=== PATIENT | female | born 1985 | race Caucasian/White ===

== ENCOUNTER 2018-10-10 18:45 | Emergency (ER) | payer OTHER ==
[~2018-10-10] VITALS: Ht 160 cm; Wt 56.7 kg
[~2018-10-10 18:45] MED LIST: BACTRIM DS TAB1 EACH PO; DERMOPLAST SPRA56 ML TOP; IBUPROFEN 800800 M1 PO; LANOLIN56 GM; MACROBID 100 M100 M1 PO; MUCINEX600 MG PO; NOHOMEMEDICATIONS; NORCO 5-325 TA1 EACH PO; PAIN RELIEVER500 M3 PO; TUCKS1 EAC1 TP; ZOLOFT 50 MG TA50 M1 PO
[2018-10-10 19:18] LABS: URINE BILIRUBIN NEGATIVE (Negative); URINE BLOOD NEGATIVE (Negative); URINE CLARITY CLEAR; URINE COLOR YELLOW; URINE GLUCOSE-RANDOM* NEGATIVE (Negative); URINE KETONES NEGATIVE (Negative); URINE PROTEIN (DIPSTICK) NEGATIVE (Negative); URINE SPECIFIC GRAVITY 1.015 (1.005-1.035)
[2018-10-10 19:19] LABS: URINE LEUKOCYTES-REFLEX 1+ (Negative); URINE NITRITE-REFLEX NEGATIVE (Negative); URINE UROBILINOGEN 0.2 E.U./dl (0.2-1.0)
[2018-10-10 19:26] LABS: CASTS None Seen /LPF (None Seen); SQUAMOUS 4-10 Moderate /LPF (0-3); URINE RBC None Seen /HPF (0-2); URINE WBC-REFLEX 6-15 Few /HPF (0-5)
[2018-10-10 19:27] LABS: CRYSTALS None Seen /LPF (None Seen)
[2018-10-10 20:23] LABS: ABSOLUTE NEUTROPHILS 5.5 thou/uL (1.4-8.2); BASOPHILS 0.6 % (0.0-2.0); EOSINOPHILS 1.5 % (0.0-3.0); HEMATOCRIT 45.4 % (37.0-47.0); HEMOGLOBIN 15.6 gm/dL (12.0-15.0); LYMPHOCYTES 31.7 % (24.0-44.0); MCH 32.2 pg (26.0-34.0); MCHC 34.2 g/dL (28.0-37.0); MCV 93.9 fL (80.0-100.0); MONOCYTES 5.3 % (1.0-8.0); PLATELET COUNT 307 thou/uL (150-400); POLYS 60.9 % (36.0-66.0); RBC 4.84 mil/uL (4.20-5.00)
[2018-10-10 20:31] LABS: CALCIUM 9.5 mg/dL (8.5-10.1); POTASSIUM 3.4 mmol/L (3.5-5.1)
--- NOTE | 2018-10-10 21:07 | EKG ---
[place] [address] [facility] [place] [address] ELECTROCARDIOGRAM REPORT Name: EPIFANIO CEVALLOSRA Alonzo Room #: [facility]#: [id number] Admission: 10/10/18 Attend Phys: Discharge: Date of : 83 Report #: [id number] THIS REPORT FOR: //name// 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1985 Requested By: Bridget John Order Number: [id number] MD: Robin Mcgowan Measurements Intervals [place] Rate: 73 P: 67 IN: 195 QRS: 49 QRSD: 79 T: 1 QT: 371 QTc: 409 Interpretive Statements Sinus rhythm Probable left atrial enlargement Nonspecific T abnormalities, anterior leads No previous ECG available for comparison Electronically Signed On 10-10-2018 21:07:12 [employer]OM OPERATOR by Robin Mcgowan [email or web address] <ELECTRONICALLY SIGNED> By: Robin Mcgowan MD 10/10/187 30 30 Robin Mcgowan MD /JESSI
[2018-10-10 21:11] VITALS: BP 127/68
[2018-10-10 21:32] LABS: AMP/METHAMP Negative (Negative); BARBITURATES Negative (Negative); BENZODIAZEPINES Negative (Negative); COCAINE Negative (Negative); METHADONE Negative (Negative); OPIATES Negative (Negative); PCP Negative (Negative)
[2018-10-10] MEDS ORDERED: HYDROXYZINE HCL25 M1 PO (21:36)
[2018-10-10] MEDS ORDERED: KEFLEX500 M1 PO (21:36)
== END 2018-10-10 21:46 | disposition home or self-care (01) ==
LOC: ER 18:45
PROVIDERS: Emergency Medicine; Nurse Practitioner Family
DX: F41.9 Anxiety disorder, unspecified (principal); R00.2 Palpitations

== ENCOUNTER 2019-04-06 19:02 | Emergency (ER) | payer OTHER ==
[~2019-04-06] VITALS: Ht 160 cm; Wt 79.4 kg
[~2019-04-06 19:02] MED LIST changes: +HYDROXYZINE HCL25 M1 PO; +KEFLEX500 M1 PO
[2019-04-06] MEDS ORDERED: IBUPROFEN 200200 M1 PO (19:10)
[2019-04-06] MEDS ORDERED: NAPROSYN500 MG PO (21:40)
[2019-04-06] MEDS ORDERED: NORFLEX100 MG PO (21:40)
[2019-04-06 21:50] VITALS: BP 124/75
== END 2019-04-06 21:52 | disposition home or self-care (01) ==
LOC: ER 19:02
DX: S16.1XXA Strain of muscle, fascia and tendon at neck level, initial encounter (principal); S46.812A Strain of other muscles, fascia and tendons at shoulder and upper arm level, left arm, initial encounter; F17.200 Nicotine dependence, unspecified, uncomplicated; V89.2XXA Person injured in unspecified motor-vehicle accident, traffic, initial encounter; Y93.89 Activity, other specified; Y92.89 Other specified places as the place of occurrence of the external cause; Y99.8 Other external cause status

== ENCOUNTER 2020-07-26 13:33 | Emergency (ER) | payer OTHER ==
[~2020-07-26] VITALS: Ht 160 cm; Wt 59.0 kg
[~2020-07-26 13:33] MED LIST changes: +IBUPROFEN 200200 M1 PO; +NAPROSYN500 MG PO; +NORFLEX100 MG PO
[2020-07-26 14:20] LABS: ABSOLUTE NEUTROPHILS 4.1 thou/uL (1.4-8.2); BASOPHILS 0.8 % (0.0-2.0); EOSINOPHILS 1.3 % (0.0-3.0); HEMATOCRIT 44.8 % (37.0-47.0); HEMOGLOBIN 15.1 gm/dL (12.0-15.0); LYMPHOCYTES 30.3 % (24.0-44.0); MCH 32.2 pg (26.0-34.0); MCHC 33.7 g/dL (28.0-37.0); MCV 95.7 fL (80.0-100.0); MONOCYTES 5.9 % (1.0-8.0); PLATELET COUNT 300 thou/uL (150-400); POLYS 61.7 % (36.0-66.0); RBC 4.68 mil/uL (4.20-5.00); WBC 6.7 thou/uL (4.0-11.0)
--- NOTE | 2020-07-26 14:23 | EKG ---
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1985 Requested By: Maribell Munson Order Number: [id number] MD: Messi Manuel Measurements Intervals [place] Rate: 65 P: 73 CO: 182 QRS: 60 QRSD: 79 T: -2 QT: 420 QTc: 437 Interpretive Statements Sinus rhythm Probable left atrial enlargement Nonspecific T abnormalities, anterior leads Compared to ECG 10/10/2018 20:31:32 No significant changes Electronically Signed On 07-26-2020 14:23:34 CDT by Messi Manuel [email or web address] <ELECTRONICALLY SIGNED> By: Messi Manuel MD, FACC 07/26/20 1423 1405 1405 Messi Manuel MD, [facility] /EPI
[2020-07-26 14:29] LABS: CALCIUM 8.8 mg/dL (8.5-10.1); CREATININE 0.9 mg/dL (0.6-1.0); POTASSIUM 3.7 mmol/L (3.5-5.1)
[2020-07-26 14:35] LABS: ALBUMIN 3.9 g/dL (3.4-5.0); TOTAL BILIRUBIN 1.4 mg/dL (0.2-1.0); TOTAL PROTEIN 7.1 g/dL (6.4-8.2)
[2020-07-26] MEDS ORDERED: PENICILLIN V P500 MG PO (15:07)
[2020-07-26] MEDS ORDERED: ULTRAM 50MG TAB50 MG PO (15:07)
[2020-07-26 15:10] VITALS: BP 126/52
== END 2020-07-26 15:10 | disposition home or self-care (01) ==
LOC: ER 13:33
PROVIDERS: Physician Assistant
DX: K04.7 Periapical abscess without sinus (principal); R00.2 Palpitations; R42 Dizziness and giddiness; Z79.899 Other long term (current) drug therapy

== ENCOUNTER 2021-08-23 08:45 | Emergency (ER) | payer OTHER ==
[~2021-08-23] VITALS: Ht 160 cm; Wt 56.7 kg
[~2021-08-23 08:45] MED LIST changes: +PENICILLIN V P500 MG PO; +ULTRAM 50MG TAB50 MG PO
[2021-08-23] MEDS ORDERED: NORCO5 PO (10:00)
[2021-08-23] MEDS ORDERED: CRUTCHES MISCELL (10:02)
[2021-08-23 10:07] VITALS: BP 130/79
== END 2021-08-23 10:07 | disposition home or self-care (01) ==
LOC: ER 08:45
DX: S92.515A Nondisplaced fracture of proximal phalanx of left lesser toe(s), initial encounter for closed fracture (principal); W01.198A Fall on same level from slipping, tripping and stumbling with subsequent striking against other object, initial encounter; Y93.9 Activity, unspecified; Y92.89 Other specified places as the place of occurrence of the external cause; Y99.9 Unspecified external cause status